=== PATIENT | female | born 1975 | race Caucasian/White ===

== ENCOUNTER 2022-08-14 21:25 | Emergency (ER) | payer OTHER, SELFPAY ==
--- NOTE | ~2022-08-14 | XR_ITS ---
EXAMINATION: XR chest 2V DATE: 08/14/2022 21:57 INDICATION: Heart palpitations and dizziness TECHNIQUE: frontal and lateral views of the chest were obtained. COMPARISON: None FINDINGS: The lungs are clear with no focal airspace opacities, pulmonary edema, pleural effusion or pneumothor ax. The cardiomediastinal silhouette is normal. Mild thoracic spondylosis. Patient is wearing a cardi ac monitor positioned anterior to the upper sternum. IMPRESSION: 1. No acute cardiopulmonary disease. Reviewed, dictated and finalized at location A.
[2022-08-14 21:29] VITALS: BP 133/105; PULSE 118; RESP 17; TEMP 36.2; O2SAT 100
--- NOTE | 2022-08-14 21:35 | ECG_ITS ---
Measurements Intervals [place] Rate: 110 P: -12 VA: 197 QRS: 4 QRSD: 78 T: -6 QT: 311 QTc: 422 Interpretive Statements SINUS TACHYCARDIA WITH FREQUENT SUPRAVENTRICULAR PREMATURE COMPLEXES INFERIOR MYOCARDIAL INFARCTION [40+ ms Q WAVE AND/OR ST/T ABNORMALITY IN II/aVF], OF INDETERMINATE AGE NO PREVIOUS ECG AVAILABLE FOR COMPARISON Electronically Signed On 08-15-2022 13:41:13 CDT by Regino Giles M.D.
--- NOTE | 2022-08-14 21:39 | ED.ARRPALP ---
HPI - Arrhythmia/Palpitations General Chief Complaint: Arrhythmia/Palpitations <Lamont Rodríguez PA-C - Last Filed: 08/15/22 02:24> Stated Complaint: palpitations <BRENDA Vivar Last Filed: 08/15/22 02:24> Time Seen by Provider: 08/14/22 21:34 <BRENDA Vivar Last Filed: 08/15/22 02:24> Source: patient <BRENDA Vivar Last Filed: 08/15/22 02:24> Mode of arrival: ambulatory <BRENDA Vivar Last Filed: 08/15/22 02:24> Limitations: no limitations <BRENDA Vivar Last Filed: 08/15/22 02:24> History of Present Illness HPI narrative: This is a 47-year-old female who presents to the ED with chief complaint of palpitations onset this evening around 2029. Patient states she is being worked up for lightheadedness and palpitations for the past month and is on a 30-day Holter monitor with her PCP. Patient states tonight symptoms worsened with numbness in bilateral hands, feeling shaky and lightheaded. Also states she is somewhat short of breath, which seems to be improving as I interview her. Denies LOC. Denies chest pain. Denies fevers, chills, abdominal pain, nausea, vomiting, weakness, speech change, vision change. States she is scheduled for thyroid ultrasound. <Lamont Rodríguez PA-C - Last Filed: 08/15/22 02:24> Related Data Allergies/Adverse Reactions: Allergies Allergy/AdvReac Type Severity Reaction Status Date / Time No Known Allergies Allergy Verified 08/14/22 21:34 <BRENDA Vivar Last Filed: 08/15/22 02:24> Review of Systems Review of Systems: CONSTITUTIONAL: Denies fever, chills, or sweats. EYES: Denies visual changes, redness, or discharge. ENT: Denies rhinorrhea, congestion, sore throat, or otalgia. CARDIOVASCULAR: See HPI RESPIRATORY: See HPI GASTROINTESTINAL: Denies abdominal pain, nausea, vomiting, or diarrhea. GENITOURINARY: Denies dysuria or hematuria. SKIN: Denies rash or itching. MUSCULOSKELETAL: Denies back pain, joint pain, or myalgia. NEUROLOGIC: See HPI PSYCHIATRIC: Denies anxiety or depression. <Lamont Rodríguez PA-C - Last Filed: 08/15/22 02:24> Exam Narrative: GENERAL: Well-appearing, well-nourished, and in no acute distress. HEAD: Normocephalic, atraumatic. EYES: PERRLA and EOMI. ENT: Nares clear, no rhinorrhea or epistaxis. Mucous membranes moist. Oropharynx without tonsillar hypertrophy exudate or other lesions. NECK: Supple. No adenopathy or masses. CHEST: No respiratory distress. Clear to auscultation. No wheezes rales or rhonchi. HEART: Tachycardic to 110 and regular rhythm. No murmur heard. Normal peripheral pulses. ABDOMEN: Soft, nontender, nondistended, normal active bowel sounds. EXTREMITIES: Normal range of motion. No edema. SKIN: Warm, dry, no rash. NEURO: Alert and oriented x3. No focal deficits. PSYCH: Normal mood and affect. <Lamont Rodríguez PA-C - Last Filed: 08/15/22 02:24> Course OPERATING ROOM NURSE/PA Physician Supervision For this patient encounter, I reviewed the OPERATING ROOM NURSE or PA documentation, treatment plan, and medical decision making and I had [id number] time with this patient. I performed all aspects of the MDM as documented. <Michelle Kiran MD - Last Filed: 08/15/22 22:12> Vital Signs Vital signs: Vital Signs Temperature 97.2 F L 08/14/22 21:29 Pulse Rate 118 H 08/14/22 21:29 Respiratory Rate 17 08/14/22 21:29 Blood Pressure 133/105 H 08/14/22 21:29 Pulse Oximetry 100 08/14/22 21:29 Oxygen Delivery Room Air 08/14/22 21:29 Temperature 97.2 F L 08/14/22 21:29 Pulse Rate 75 08/15/22 01:46 Respiratory Rate 14 08/15/22 01:46 Blood Pressure 111/72 08/15/22 01:46 Pulse Oximetry 100 08/14/22 22:45 Oxygen Delivery Room Air 08/14/22 21:29 <Lamont Rodríguez PA-C - Last Filed: 08/15/22 02:24> Vital Signs Temperature 97.2 F L 08/14/22 21:29 Pulse Rate 118 H 08/14/22 21:29 Respiratory Rate 17 08/14/22 21:29 Blood Pressure 1
[2022-08-14] MEDS: SODIUM CHLORIDE 0.9% IV 1,000 ML 999 ML IV CONT (21:43)
[2022-08-14 21:51] LABS: Basophils Absolute Auto 0.1 K/mm3 (0.0-0.1); Basophils Percent Auto 0.8 % (0.2-1.2); Eosinophils Absolute Auto 0.1 K/mm3 (0-0.3); Eosinophils Percent Auto 0.8 % (0-4.4); Hematocrit 45.3 % (37.0-47.0); Immature Granulocyte Absolute 0.02 K/mm3 (0.00-0.031); Immature Granulocyte Percent A 0.2 % (0-0.5); Lymphocytes Absolute Auto 4.44 K/mm3 (0.9-3.2); Lymphocytes Percent Auto 44.8 % (18.3-44.2); Mean Corpuscular HGB Conc 33.1 g/dl (32-36); Mean Corpuscular Hemoglobin 31.1 pg (26-34); Mean Corpuscular Volume 93.8 fl (80-100); Mean Platelet Volume 10.3 fl (7.4-10.4); Monocytes Absolute Auto 0.7 K/mm3 (0.1-0.6); Monocytes Percent Auto 6.8 % (2.6-8.5); Neutrophils Absolute Auto 4.6 K/mm3 (1.3-6.7); Neutrophils Percent Auto 46.6 % (45.5-73.1); Platelet Count Result 352 k/mm3 (150-375); Red Blood Count 4.83 M/mm3 (4.2-5.4); Red Cell Distribution Width 12.9 % (11.5-14.5); White Blood Count 9.9 K/mm3 (4.5-10.0)
[2022-08-14 22:02] LABS: INR 0.9; Partial Thromboplastin Time 28.4 SECONDS (22.3-36.8); Prothrombin Time 12.9 Seconds (11.1-14.7)
[2022-08-14 22:12] LABS: Alanine Aminotransferase 27 U/L (6-35); Albumin Level 4.7 g/dL (3.5-5.1); Alkaline Phosphatase 67 U/L (38-126); Anion Gap 14 mmol/L (8-16); Aspartate Amino Transferase 26 U/L (14-36); Bilirubin,Total 0.6 mg/dL (0.2-1.3); Blood Urea Nitrogen 13 mg/dL (7-17); Calcium 9.1 mg/dL (8.4-10.2); Carbon Dioxide 19 mmol/L (22-30); Chloride 104 mmol/L (98-107); Estimated CRCL calculation 57 ml/min; Estimated Glomerular Filt Rate > 60; Glucose 128 mg/dL (65-110); Potassium 3.1 mmol/L (3.4-5.0); Sodium 137 mmol/L (137-145)
[2022-08-14 22:15] LABS: Lipase 125 U/L (23-300)
[2022-08-14 22:18] LABS: Magnesium 2.2 mg/dL (1.6-2.3)
[2022-08-14] MEDS: POTASSIUM CHLORIDE 20 MEQ TABLET PO (22:21)
[2022-08-14 22:23] LABS: D Dimer 0.31 ug/mL (<0.48)
[2022-08-14 22:28] LABS: Troponin I < 0.012 ng/mL (0.000-0.034)
[2022-08-14 22:45] VITALS: BP 135/79; PULSE 93; RESP 12; O2SAT 100
[2022-08-14 23:15] VITALS: BP 120/73; PULSE 89; RESP 10
[2022-08-14 23:22] LABS: Appearance Urine Clear (Clear); Bacteria Urine None Seen /hpf; Bilirubin Urine Negative (Negative); Blood Urine Trace (Negative); Color Urine Yellow (Yellow); Glucose Urine UA Negative (Negative); Ketones Urine 1+ mg/dL (Negative); Leukocyte Esterase Ur 1+ LEU/UL (Negative); Nitrate Urine Negative (Negative); Non Pathogenic Casts 0-2; Protein Urine Negative (Negative); RBC Urine 0-2 /hpf (0-2); Specific Grav Ur 1.004 (1.001-1.035); Squamous Epithelial Cell Urine None seen /hpf (Few); Urobilinogen Urine 0.2 mg/dL (<2.0); pH Urine 7.5 (5.0-9.0)
[2022-08-14 23:31] VITALS: BP 118/70; PULSE 88; RESP 9
[2022-08-14 23:34] LABS: Add Urine Microscopic? YES
[2022-08-14 23:46] VITALS: BP 114/67; PULSE 89; RESP 13
[2022-08-15 01:01] VITALS: BP 112/73; PULSE 77; RESP 12
[2022-08-15 01:46] VITALS: BP 111/72; PULSE 75; RESP 14
[2022-08-15 02:01] LABS: Troponin I < 0.012 ng/mL (0.000-0.034)
== END 2022-08-15 02:38 | disposition home or self-care (01) ==
PROVIDERS: Emergency Provider Physician Assistant; PCP Nurse Practitioner Family
DX: R00.2 Palpitations (principal); I49.1 Atrial premature depolarization; F41.9 Anxiety disorder, unspecified
CPT/HCPCS: 36415; 71046; 80053; 81001; 83690; 83735; 84484; 85025; 85380; 85610; 85730; 87086; 87088; 93005; 96360; 99284; A9270; J7030